=== PATIENT | female | born 1965 | race African-American/Black ===

== ENCOUNTER 2019-09-19 20:28 | Observation (INO) ==
[2019-09-19 21:25] LABS: URINE SOURCE CLEAN CATCH
[2019-09-19 21:28] LABS: BILIRUBIN URINE NEGATIVE (NEGATIVE); BLOOD URINE MODERATE (NEGATIVE); COLOR YELLOW; GLUCOSE URINE NEGATIVE (NEGATIVE); KETONE URINE TRACE mg/dL (NEGATIVE); LEUKOCYTES URINE NEGATIVE (NEGATIVE); NITRITE URINE NEGATIVE (NEGATIVE); PROTEIN URINE 50 mg/dL (NEGATIVE); SP GRAVITY URINE 1.033; TURBIDITY URINE CLEAR (CLEAR); UROBILINOGEN URINE NORMAL (NORMAL)
[2019-09-19] MEDS ORDERED: BENTYL PO ONE (21:31)
[2019-09-19] MEDS ORDERED: ZOFRAN IV ONE (21:31)
[2019-09-19 21:33] LABS: BASO# 0.01 X1000 (0.0-0.2); BASO% 0.2 % (0.0-0.8); EOS# 0.01 X1000 (0.0-0.7); EOS% 0.2 % (0.0-10.0); HEMATOCRIT 30.6 % (37.0-47.0); HEMOGLOBIN 8.5 g/dL (12.0-16.0); IMM GRAN# 0.01 X1000 (0.0-0.04); IMM GRAN% 0.2 % (0.0-0.5); LYMPH# 0.74 X1000 (1.2-3.4); LYMPH% 13.7 % (20.5-51.1); MCH 18.8 PG (27-31); MCHC 27.8 g/dL (33-37); MCV 67.5 FL (81-99); MONO% 7.4 % (1.7-9.3); MPV 10.4 FL (7.4-10.4); NEUT# 4.22 X1000 (1.4-6.5); NEUT% 78.3 % (42.2-75.2); PLT 295 X1000 (130-400); RBC 4.53 XMIL (4.2-5.4); RDW 21.1 % (11.5-14.5); WBC 5.39 X1000 (4.8-10.8)
[2019-09-19] MEDS ORDERED: NS 1,000 ML IV ONE (21:34)
--- NOTE | 2019-09-19 21:37 | PROVIDER DOCUMENTATION ---
HPI-Abdominal Pain/GI Problem - General Chief Complaint: Diarrhea Stated Complaint: N/V Time Seen by Provider: 09/19/19 21:27 Source: patient Allergies/Adverse Reactions: Patient Allergies Allergy/AdvReac Type Severity Reaction Status Date / Time No Known Allergies Allergy Verified 09/19/19 20:36 Home Medications: Home Medication List Medication Instructions Recorded Confirmed Last Taken Type NK [No Home Medications] 09/19/19 09/19/19 Unknown History - History of Present Illness-ABD Nature of Presenting Problems: Patient is a 54yo F who presents with complaints of bilateral lower abdominal pain, nausea, vomiting, and diarrhea x2 days. Reports last episode of emesis was 1900 this evening, and last episode of diarrhea occurred while in ED. Patient reports she has not been able to tolerate fluids. Denies OTC medication usage, fever/chills, blood in emesis/stool, CP, or SOB. Non-toxic in appearance. Abdominal Pain Onset Location: reports: RLQ, LLQ Pain Radiation: reports: no radiation Quality of Pain: reports: aching, cramping Severity in ED: reports: moderate Onset/Duration: reports: 2 days ago Timing: reports: still present Modifying Factors: improves with: nothing Associated Symptoms: reports: diarrhea, nausea, vomiting. denies: back/neck pain, cough, fever/chills, genitourinary problems, shortness of breath, weakness Last BM: this evening Dark Stools Present?: reports: none noticed Rectal Bleeding: reports: none Rectal Pain: reports: none Emesis Description: reports: clear, other (undigested food) Bruising or Bleeding Gums?: No Similar Symptoms Previously?: No Recently seen or treated by another doctor?: No Review of Systems - Adult - REVIEW OF SYSTEMS - ADULT Constitutional: reports: no symptoms reported. denies: chills, fever Eyes: reports: no symptoms reported Ears, Nose, Mouth & Throat: reports: no symptoms reported Cardiovascular: reports: no symptoms reported. denies: chest pain, palpitations Respiratory: reports: no symptoms reported. denies: cough, shortness of breath Gastrointestinal: reports: see HPI, abdominal pain, diarrhea, nausea, vomiting Genitourinary: reports: no symptoms reported. denies: dysuria Musculoskeletal: reports: no symptoms reported Integumentary: reports: no symptoms reported Neurological: reports: no symptoms reported Psychiatric: reports: no symptoms reported Endocrine: reports: no symptoms reported Past History - Adult - PAST MEDICAL HISTORY-ADULT Review of Records: reports: Nursing Assessment Review, Medications Reviewed, Social history reviewed & non-contributory. Major Childhood Illnesses: reports: denies history Cardiovascular: reports: denies history Respiratory: reports: denies history Gastrointestinal: reports: Crohn's Obstetrical/Gynecological: reports: denies history Genitourinary: reports: denies history Musculoskeletal: reports: denies history Neurological: reports: denies history Endocrine/Immune: reports: anemia Other Conditions: reports: denies history - PRIOR SURGERIES/PROCEDURES Surgical/Procedure History: reports: gastric bypass - PRIOR HOSPITALIZATIONS Prior Hospitalizations: reports: for other non-related - IMMUNIZATION STATUS Childhood Immunizations: See Nurse Assessment Flu Vaccine: See Nurse Assessment - FAMILY HISTORY Family History: reviewed, not pertinent - SOCIAL HISTORY Smoking: denies, non-smoker Physical Exam-General - PHYSICAL EXAM-ADULT Initial Vital Signs Reviewed: Yes - CONSTITUTIONAL General Appearance: alert, mild distress. negative: lethargic, slow to respond, obtunded - EYES Eyes: PERRL/EOMI, pink conjunctivae - HEAD, EARS, NOSE, MOUTH & THROAT HENMT: normocephalic/atraumatic. negative: moist mucous membranes (dry) - NECK Neck: non-tender, full range of motion, supple, normal inspection - RESPIRATORY Respiratory: chest non-tender, lungs clear, normal breath sounds, no pleuratic chest pain, no respiratory distress, no accessory muscle use. negative: crackles, rales, rhonchi, stridor, wheezing - CARDIOVASCULAR Cardiovascular: regular rate, rhythm - GASTROINTESTINAL (ABDOMEN) Abdominal Exam: soft, no organomegaly, abnormal bowel sounds (hyperactive all quadrants), tenderness (bilateral lower quadrants). negative: distended, rigid, rebound - MUSCULOSKELETAL Back Exam: normal inspection Extremity: normal range of motion, non-tender, normal gait, normal inspection - SKIN Integumentary: normal color, normal turgor, warm/dry. negative: cyanosis, jaundice, pallor - NEUROLOGIC Neurologic: grossly normal - PSYCHIATRIC Psych/Mental Status: normal mood/affect, normal thought content, normal thought process, oriented x 3 Progress - PLAN OF CARE/RESULTS Progress/Plan/Lab Results: Vital Signs - 8 hr 09/19/ 20:32 Temperature 98.4 F Pulse Rate 70 Respiratory Rate 18 Blood Pressure 131/79 O2 Sat by Pulse Oximetry 98 Laboratory Results - last 24 hr 09/19/19 21:17 Urine Source CLEAN CATCH Urine Color YELLOW Urine Turbidity CLEAR Urine pH 6.0 Ur Specific [place] 1.033 Urine Protein 50 A Ur Glucose (Stick) NEGATIVE Ur Ketones (Stick) TRACE A Urine Blood MODERATE A Urine Nitrite NEGATIVE Urine Bilirubin NEGATIVE Urobilinogen Dipstick NORMAL Urine Leukocytes NEGATIVE Orders Category Date Time Status Orthostatic Vital Signs NOW Care 09/19/19 21:01 Active CBC WITH ELECTRONIC DIFF [HEME] Stat Lab 09/19/19 21:14 Results COMPREHENSIVE METABOLIC PANEL [CHEM] Stat Lab 09/19/19 21:[address] Stat Lab 09/19/19 21:14 Received LIPASE [CHEM] Stat Lab 09/19/19 21:14 Received URINALYSIS W/POSS RFLX CULT [URINALYSIS] Stat Lab 09/19/19 21:17 Results URINE MANUAL MICROSCOPIC [URINALYSIS] Stat Lab 09/19/19 21:17 Results 2208: Patient's Potassium 3.0 likely d/t GI losses. EKG ordered. Discussed with Dr. Fraga regarding replacement - he recommends 40mEq PO now (once nausea improves) & 20mEq IV now. Lab results, imaging results, and need for admission discussed with patient who agrees with and verbalizes understanding. Result Diagrams: 09/19/19 21:14 09/19/19 21:14 - REASSESSMENT Reassessment #1 Time Reassessed: 23:50 Status: unchanged Reassessment Comment: Pt still reports nausea & pain. Will admit for observation d/t ileus - EKG 1 Time of EKG reading by physician:: 22:16 EKG Read and Signed by:: Esteban Fraga EKG Interpretation (*Must complete 3 of following elements*): Abnormal Rate: 66 Rhythm: NSR [place]: normal QRS: poor R wave progression (V2-V4 - per Dr. Fraga) ST Wave: non-specific ST changes Comments: Possible L atrial enlargement - CT/MRI 1 CT Study: Abdomen, Pelvis Impression: See EMR Report ("1. Mild small and large bowel ileus. No evidence for obstruction or ascites. 2. Small midline ventral hernia the upper abdomen with mild inflammatory changes.") - CONSULTS/PCP/HOSPITALIST Notification #1 *Consult/PCP/Hospitalist*: Dr. Juarez, Hospitalist Time Discussed: 00:42 Reason/Comments: Ileus; hypokalemia Consult Disposition: Admit (Observation) Departure - Departure Date of Disposition Decision: 09/20/19 Time of Disposition Decision: 00:43 DIAGNOSIS: Ileus, Hypokalemia Abdominal pain Qualifiers: Abdominal location: lower abdomen, unspecified Qualified Code(s): R10.30 - Lower abdominal pain, unspecified Nausea and vomiting Qualifiers: Vomiting type: unspecified Vomiting Intractability: unspecified Qualified Code(s): R11.2 - Nausea with vomiting, unspecified Diarrhea Qualifiers: Diarrhea type: unspecified type Qualified Code(s): R19.7 - Diarrhea, uns pecified UTI (urinary tract infection) Qualifiers: Urinary tract infection type: acute cystitis Hematuria presence: with hematuria Qualified Code(s): N30.01 - Acute cystitis with hematuria Disposition: ADMITTED INPATIENT 09 Certified Medical Emergency: Emergent Condition: Stable Referrals and Follow-Ups: Edwin Childress MD [Primary Care Provider] - Call for Appoint. 1-2days (Follow up for abdominal pain, nausea, vomiting, and diarrhea.) Discharge Education: Food Choices to Help Relieve Diarrhea, Adult - Critical Care Note This patient required my direct & personal management of CC.: No Attestation - Physician/ DORITA Attestation Patient care was provided by Advanced Practice Provider:: Yes Advanced Practice Provider:: Shraddha Lloyd Advanced Practice Provider documentation review:: The Mid-level provider documentation, treatment plan and medical decision making was reviewed by the physician who agrees with all treatment and medical decision making by the P. The physician spent face to face time with patient:: No Advanced Practice Provider documentation review:: Supervising physician onsite and consulted in the evaluation and care of this patient. The physician did not have a face to face encounter with the patient.
[2019-09-19 21:40] LABS: AGAP 14; ALBUMIN 4.1 g/dL (3.5-5.0); ALKALINE PHOSPHATASE 130 U/L (32-104); BUN 13 mg/dL (8-22); CALCIUM 8.2 mg/dL (8.8-10.2); CHLORIDE 108 mmol/L (98-107); COSMO 285; CREATININE 0.7 mg/dL (0.5-0.9); ESTIMATED GFR > 60; GLUCOSE 94 mg/dL (70-104); GOT 25 U/L (10-30); GPT 9 U/L (10-36); LIPASE 33 U/L (13-60); SODIUM 143 mmol/L (136-145); TCO2 21 mmol/L (25-35); TOTAL PROTEIN 7.7 g/dL (6.3-8.3)
[2019-09-19 21:44] LABS: INFLUENZA A NEGATIVE (NEGATIVE); INFLUENZA B NEGATIVE (NEGATIVE)
[2019-09-19 21:47] LABS: UR EPITHELIAL CELLS <10 /HPF (<10); URINE BACTERIA NEGATIVE /HPF; URINE RBC 20-40 /HPF (<10)
[2019-09-19] MEDS ORDERED: POTASSIUM CHLORIDE 20 MEQ/SWI 20 MEQ/100 ML IVPB IV ONE ×2 (22:07→23:53)
[2019-09-19] MEDS ORDERED: KLOR-CON PO ONE (22:07)
[2019-09-19] MEDS ORDERED: ROCEPHIN 1 GM in NS 50 ML IV ONE (22:18)
[2019-09-19] MEDS ORDERED: TORADOL IV ONE (23:52)
--- NOTE | 2019-09-20 00:32 | EKG Report ---
Test Performed on : 09/19/2019 10:16:06 PM Test Reason : Hypokalemia Blood Pressure : / mmHG Vent. Rate : 066 BPM Atrial Rate : 066 BPM P-R Int : 160 ms QRS Dur : 076 ms QT Int : 386 ms P-R-T Axes : 055 011 092 degrees QTc Int : 404 ms Normal sinus rhythm. Possible Left atrial enlargement Septal infarct , age undetermined T wave abnormality, consider lateral ischemia Abnormal ECG When compared with ECG of 01-AUG-2016 20:12, Significant changes have occurred Confirmed by Bhargavi RIVERA, Scottie ([id number]), managing editor Maria Fernanda Nolen ([id number]) on 10/30/2019 12:37:51 PM
[2019-09-20] MEDS ORDERED: NS 1,000 ML IV ONE (00:44)
[2019-09-20] MEDS ORDERED: ZOFRAN IV PRN (10:24)
[2019-09-20] MEDS: MORPHINE IV PRN ×2 (10:35→13:57)
--- NOTE | 2019-09-20 10:57 | HISTORY AND PHYSICAL ---
PRIMARY CARE PHYSICIAN: None. CHIEF COMPLAINT: Lower abdominal pain with nausea, vomiting, and diarrhea for the past 2 days that progressively worsened. HISTORY OF PRESENTING ILLNESS: This is a 54-year-old female who presents to [facility] ER with complaints of right lower and left lower quadrant abdominal pain, nausea, vomiting, and diarrhea for the past 2 days. Her last episode of emesis was around 7 p.m. last night, and her last episode of diarrhea occurred while she was in the emergency room, and has not been able to tolerate fluids. She denied any fever, chills, blood in emesis or stool. Her workup showed a potassium of 3.0. CT of the abdomen and pelvis, per ER documentation, showed a mild small and large bowel ileus. No evidence for obstruction or ascites. She will be admitted for further evaluation and treatment. PAST MEDICAL HISTORY: Osteoarthritis and anemia. PAST SURGICAL HISTORY: Left knee surgery and a gastric bypass. FAMILY HISTORY: Reviewed and noncontributory. SOCIAL HISTORY: She currently lives with family. Denies any tobacco, alcohol, or illicit drug use. ALLERGIES: She has no known drug allergies. HOME MEDICATIONS: She does not take any medications on a routine basis. IMAGING AND LABORATORY DATA: Laboratory data showed a white blood cell count of 5.39, hemoglobin 8.5, hematocrit 30.6, platelets 295,000. Sodium 143, potassium 3, chloride 108, CO2 of 21, BUN of 13, creatinine 0.7, glucose 94. Lipase of 33. Urinalysis was negative. Influenza A and B were both negative. CT of the abdomen and pelvis, per ER documentation, showed a mild small and large bowel ileus, but no evidence for obstruction or ascites, small midline ventral hernia in the upper abdomen with mild inflammatory changes. REVIEW OF SYSTEMS: She denied any fever, chills, blurred vision, dizziness, chest pain, coughing, shortness of breath. She had right lower and left lower quadrant abdominal pain, nausea, vomiting, and diarrhea, but denies any burning or hurting with urination. PHYSICAL EXAMINATION: VITAL SIGNS: On arrival, she had a temperature of 98.4 degrees, pulse 70, respirations 18, blood pressure 131/79, saturating 98% on room air. GENERAL: This is a 54-year-old female who is lying in the bed and answers questions appropriately. HEENT: Normocephalic, atraumatic. Normal ENT inspection. Oropharynx and nares are clear. Eyes: Pupils are equal, round, and reactive to light and accommodation. Extraocular movements are intact. NECK: Normal inspection. Normal range of motion. LUNGS: Clear to auscultation bilaterally with equal lung expansion and chest wall movement. HEART: Regular rate and rhythm. No murmurs, rubs, or gallops. ABDOMEN: Soft, guarded. Tenderness to palpation. Bowel sounds are hypoactive x4 quadrants. MUSCULOSKELETAL: She had 5/5 strength x4 extremities. NEUROLOGICAL: The cranial nerves II through XII appear grossly intact. ASSESSMENT: 1. Nausea, vomiting, and diarrhea. 2. Ileus. 3. Hypokalemia. PLAN: She was admitted to the medical unit, placed on telemetry, held n.p.o. Will give her morphine 2 mg IV every 3 hours p.r.n., normal saline at 125 mL an hour, Zofran 4 mg IV every 4 hours p.r.n. She received potassium supplementation in the emergency room, and we will recheck CBC and BMP in the a.m. Further orders after seen by attending. Dictated by LAVERNE Alves for Surya Juarez MD cc: LAVERNE Alves MD
[2019-09-20] MEDS: NS 1,000 ML IV SCH (11:07)
--- NOTE | 2019-09-20 12:11 | Diag Imaging Result Doc PS360 ---
CT ABD/PELVIS W/IV CONT ONLY - 09/19/2019 INDICATION: LLQ abdominal pain, n/v/d COMPARISON: 08/11/2016 FINDINGS: The lung bases are clear and the heart size is normal. There is a moderate fat-containing epigastric ventral hernia. This has increased very slightly since prior. This measures about 4 x 2.3 cm. Stable gastric bypass changes. There are cholecystectomy clips. Small right renal cyst. Otherwise all abdominal organs are normal. No bowel obstruction or inflammation. Urinary bladder and rectum are normal. Bones are intact and well mineralized. IMPRESSION: 1. Small fat-containing ventral hernia which may have increased in size since prior. 2. Otherwise no acute disease or complication. This exam was performed using automated exposure control, adjustment of mA or kV according to patient size, and/or use of iterative reconstruction technique Electronically signed by Ihsan Mesa 09/20/2019 12:09 PM
--- NOTE | 2019-09-20 14:17 | HISTORY AND PHYSICAL ---
ADDENDUM: SUBJECTIVE: Patient has no major complaints. OBJECTIVE: Blood pressure 124/54, heart rate of 87, respiratory rate 18, temperature 100 degrees.Cardiovascular: Regular rate and rhythm. Pulmonary: Bilateral breath sounds clear to auscultation. GI: Soft. She is kind of diffusely tender, almost some rebounds maybe . LABORATORY DATA: White count is normal 5, hemoglobin and hematocrit 8 and 30, MCV 67, platelets 295,000, potassium is 3. All those were done last night in any case. PROBLEM LIST: Initially was read as ileus but the over-read by Dr. Mesa is just negative. There is no ileus. She has a ventral hernia but that is stable. It was an IV contrast only. She concerns me a little bit just because she has just got so much pain and I do not have a clear etiology so we will get stool studies because she is still having diarrhea, continue supportive care. We will get a surgical opinion if she is not improved she may need endoscopy or something to that. cc: Surya Juarez MD
[2019-09-20 14:31] LABS: EOS# 0.01 X1000 (0.0-0.7); EOS% 0.2 % (0.0-10.0); HEMATOCRIT 26.8 % (37.0-47.0); HEMOGLOBIN 7.6 g/dL (12.0-16.0); IMM GRAN# 0.01 X1000 (0.0-0.04); IMM GRAN% 0.2 % (0.0-0.5); LYMPH# 0.99 X1000 (1.2-3.4); LYMPH% 21.7 % (20.5-51.1); MCH 19.2 PG (27-31); MCHC 28.4 g/dL (33-37); MCV 67.8 FL (81-99); MONO# 0.81 X1000 (0.11-0.59); MONO% 17.7 % (1.7-9.3); NEUT# 2.75 X1000 (1.4-6.5); NEUT% 60.2 % (42.2-75.2); PLT 243 X1000 (130-400); RBC 3.95 XMIL (4.2-5.4); RDW 20.5 % (11.5-14.5); WBC 4.57 X1000 (4.8-10.8)
[2019-09-20 14:38] LABS: AGAP 14; BUN 8 mg/dL (8-22); CALCIUM 7.6 mg/dL (8.8-10.2); CHLORIDE 110 mmol/L (98-107); COSMO 279; CREATININE 0.6 mg/dL (0.5-0.9); ESTIMATED GFR > 60; GLUCOSE 94 mg/dL (70-104); POTASSIUM 3.2 mmol/L (3.5-5.1); SODIUM 141 mmol/L (136-145); TCO2 18 mmol/L (25-35)
[2019-09-20] MEDS: PROTONIX IV SCH (15:39)
[2019-09-20] MEDS: SODIUM CHLORIDE 0.9% INJ SCH (15:39)
[2019-09-20 15:50] LABS: BANDS 20 % (0-1); LYMPHS 14 % (21-51); MONO 10 % (1-9); SEGS 56 % (42-75)
[2019-09-20 15:51] LABS: ANISOCYTOSIS 2+; HYPOCHROM 2+; MICROCYTOSIS 2+; POIKILOCYTOSIS 1+; POLYCHROM 1+
[2019-09-20 15:54] LABS: OVALOCYTES 1+; STOMATOCYTES RARE
[2019-09-20 15:55] LABS: SCHISTOCYTES OCCASIONAL
--- NOTE | 2019-09-20 16:01 | GENERAL SURGERY CONSULTATION ---
DATE: 09/20/2019 REQUESTING PHYSICIAN: Dr. Juarez. REASON FOR CONSULTATION: Abdominal pain. HISTORY OF PRESENT ILLNESS: A 54-year-old female with a history of gastric bypass, who presented with 2-day history of lower abdominal pain, nausea, vomiting and diarrhea that has progressively worsened. She was seen in the emergency department and had a CT scan that showed initially on the preliminary report a small bowel and large bowel ileus, but no obvious other acute pathology. She has had a ventral hernia looks slightly increased in size but does not look strangulated. She reports the pain as being bilateral lower quadrant, felt like something stabbing and dancing. She has never had pain like this before. It is increasing in intensity. She is now becoming tachycardic and febrile. PAST MEDICAL HISTORY: Osteoarthritis, anemia. PAST SURGICAL HISTORY: Includes left knee surgery, gastric bypass. FAMILY HISTORY: Reviewed with the patient and noncontributory. SOCIAL HISTORY: Denies alcohol, tobacco or illicit drugs. ALLERGIES: None. HOME MEDICATIONS: MAR reviewed. REVIEW OF SYSTEMS: A full 14 systems reviewed are negative except as specified in the HPI. PHYSICAL EXAMINATION: Vital Signs: Patient is currently febrile with temperature 100 degrees, heart rate in 100s, blood pressure is 120 systolic. O2 saturation 97%. General: Appears uncomfortable. -Cypriot female, looks stated age. HEENT: Normocephalic, atraumatic. Pupils equal, round, reactive to light. Mucous membranes moist. Oropharynx benign. Neck: Supple. Trachea midline. Cardiovascular: Some tachycardia. Lungs: Grossly clear. Abdomen: Diffusely tender with rebound somewhat consistent with pain out of proportion to exam. Extremities: Moves all extremities. Neurologic: Grossly intact. Skin: No signs of jaundice. Vascular: All extremities perfused. LABORATORY DATA: White blood cell count 4, hematocrit 26, platelet count 243,000. Remainder of labs reviewed. CT scan independently reviewed and radiology report reviewed. ASSESSMENT AND PLAN: A 54-year-old female with abdominal pain Abdominal pain. At this time, the pain seems out of proportion to exam. She has had a history of gastric bypass. I do not see an obvious hernia noted on this CT scan but it is very difficult to follow the bowel. She is more tender on exam than I would suspect, given a normal CT scan. Discussed her diagnostic laparoscopy and possible exploratory laparotomy. Discussed with her risks, benefits, and alternatives of the procedure risks including but not limited to bleeding, infection, risk of anesthesia, risk of injuring other organs, risk of need for bowel resection, risk of need to reverse her gastric bypass. We will get her across town and I have started on antibiotics and proceed with surgery. cc: Jorge A Covington MD
[2019-09-20] MEDS ORDERED: DIPRIVAN 1% ONE (16:27)
[2019-09-20] MEDS ORDERED: MEFOXIN 2 GM/D5W 2 GM/50 ML IVPB IV ONE (16:30)
[2019-09-20] MEDS ORDERED: SENSORCAINE-MPF 0.5%/EPI 1:200,000 ONE (16:47)
[2019-09-20] MEDS ORDERED: LR 1,000 ML ONE (16:47)
[2019-09-20] MEDS ORDERED: FENTANYL ONE (17:15)
[2019-09-20] MEDS ORDERED: OFIRMEV 1000 MG/ISOTONIC SOLN 0 MG/0 ML BOTTLE ONE (17:15)
[2019-09-20] MEDS ORDERED: DECADRON ONE (17:15)
[2019-09-20] MEDS ORDERED: QUELICIN (DOSE) ONE (17:15)
[2019-09-20] MEDS ORDERED: ZOFRAN ONE (17:15)
[2019-09-20] MEDS ORDERED: ZEMURON ONE (17:15)
[2019-09-20] MEDS ORDERED: NEOSTIGMINE ONE (17:51)
[2019-09-20] MEDS ORDERED: ROBINUL ONE (17:51)
[2019-09-20 17:59] LABS: URINE SOURCE CATH
[2019-09-20 18:04] LABS: BILIRUBIN URINE NEGATIVE (NEGATIVE); BLOOD URINE MODERATE (NEGATIVE); COLOR YELLOW; GLUCOSE URINE NEGATIVE (NEGATIVE); KETONE URINE 60 mg/dL (NEGATIVE); LEUKOCYTES URINE NEGATIVE (NEGATIVE); NITRITE URINE NEGATIVE (NEGATIVE); PROTEIN URINE TRACE mg/dL (NEGATIVE); SP GRAVITY URINE 1.022; TURBIDITY URINE CLEAR (CLEAR); UROBILINOGEN URINE NORMAL (NORMAL)
[2019-09-20 18:05] LABS: UR EPITHELIAL CELLS <10 /HPF (<10); URINE BACTERIA NEGATIVE /HPF; URINE WBC <10 /HPF (<10)
--- NOTE | 2019-09-20 18:06 | OPERATIVE NOTE ---
PROCEDURE DATE: 09/20/2019 PREOPERATIVE DIAGNOSIS: 1. Abdominal pain. 2. History of Goody Powder intake. 3. History of gastric bypass. POSTOPERATIVE DIAGNOSIS: 1. Abdominal pain. 2. History of Goody Powder intake. 3. History of gastric bypass. 4. Abdominal adhesions. PROCEDURE: Diagnostic laparoscopy with lysis of adhesions. SURGEON: Jorge A Covington MD. SUPERVISOR HIDE HOUSE: None. ANESTHESIA: General endotracheal. INTRAOPERATIVE FINDINGS: A single band of adhesions that looked like it was traveling up to a previous trocar site that was lysed. The small bowel appeared to be viable, maybe slightly inflamed. The colon appeared to be normal. I did not see any ischemic bowel. I did not see an internal hernia. I did not see any external signs of a perforated ulcer down at the anastomosis. I was able to see the small bowel to small bowel anastomosis and able to see the area where the gastric bypass anastomosis was. It was an antecolic gastric bypass. COMPLICATIONS: None at the time of this dictation. ESTIMATED BLOOD LOSS: 5 mL. SPECIMENS REMOVED: None. BRIEF HISTORY: A 54-year-old female presenting with abdominal pain. She had pain that seemed to be disproportionate to exam. It was felt that she would benefit from a diagnostic laparoscopy. The risks, benefits, and alternatives were discussed. All questions answered. DESCRIPTION OF PROCEDURE: After informed consent was obtained, the was patient brought to the operative theatre, transferred to the operating table and placed in supine position. General endotracheal anesthesia was then performed without complication. A formal time-out was then performed, confirming patient and procedure. All were in agreement. At that time, we elected to place a 5 mm trocar using Optiview technique infraumbilically. We then placed 2 more trocars, both lateral to this at least 10 cm, one in the left side, one in the right side. We were able to establish pneumoperitoneum without difficulty. We examined the abdomen. Upon entering, we did not see any succus or stool or purulence. I did not get any obvious free air. We examined the visible bowel just right at the abdominal insertion site. It appeared to be maybe slightly inflamed, but appeared to be overall viable. No signs of ischemia. There was a single band that was coming from the left side going across the abdomen to the right side, which we lysed sharply with electrocautery at the abdominal wall. This freed up some small bowel which appeared to be maybe slightly obstructed, but it did not seem to be causing any strangulation. I reviewed the entirety of the small bowel, went to the ileocecal valve and then ran the bowel. I did not see any ischemic bowel. I do not see any internal hernia. We were able to go back up to the anastomosis of the small bowel from the start of the Latasha limb. It appeared to be viable, may be slightly inflamed, but viable. I was able to elevate the antecolic Latasha limb up to the esophagus and the gastric pouch. I did not see any purulence, inflammation, or signs of a perforation there. The bowel itself appeared to be viable. I did not see any internal hernias or Tabares hernias in the Sorensen defect. I went and looked at the remnant of the stomach. It appeared to be viable. I did not see any obvious changes. We reexamined the rest of the bowel and the colon. I did not see any other issues. There was some mild fluid free fluid down in the pelvis, but it did not look contaminated. I did not see any other pathology. At this point, I felt as though, given her history of taking only water and Goody Powders for the last several days, that she could have developed an ulcer that has not perforated, so I elected to remove all trocars and disconnected the insufflation. Pneumoperitoneum was released. We closed all skin incisions. At this point, I think the patient would benefit from an EGD. We will put her on Protonix twice a day. I have already discussed the case with Dr. Reaves who is on-call for GI. cc: Jorge A Covington MD
[2019-09-20] MEDS ORDERED: NS 1,000 ML ONE (18:23)
[2019-09-20] MEDS: MORPHINE ONE ×3 (18:35→18:43)
[2019-09-20] MEDS ORDERED: EPHEDRINE ONE (18:48)
[2019-09-21] MEDS: NS 1,000 ML IV SCH (02:39)
[2019-09-21] MEDS: PROTONIX IV SCH ×2 (02:39→15:49)
[2019-09-21] MEDS: OFIRMEV 1000 MG/ISOTONIC SOLN 1,000 MG/100 ML BOTTLE IV PRN ×2 (02:52→10:51)
--- NOTE | 2019-09-21 06:04 | GENERAL SURGERY PROGRESS NOTE ---
DATE: 09/21/2019 SUBJECTIVE: The patient seems to be doing okay after her operation, has a little less discomfort than she had. OBJECTIVE: Vital Signs: The patient is currently afebrile, her vital signs are stable. General: No acute distress. Cardiovascular: Regular rate and rhythm. Lungs: Grossly clear. Abdomen: Soft, appropriately tender. Less tender overall than previous examination. ASSESSMENT AND PLAN: A 54-year-old female, currently postoperative day #1 from a diagnostic laparoscopy and lysis of adhesions. Postoperative state. At this time still agree with getting GI to see her for evaluation given the fact that she is taking a lot of Goody Powder and she has a gastric bypass. We will keep her on Protonix twice a day and see if GI can do EGD today to evaluate her. We will continue to follow. cc: Jorge A Covington MD
[2019-09-21 06:50] LABS: HEMOGLOBIN 7.8 g/dL (12.0-16.0); LYMPH# 1.03 X1000 (1.2-3.4); LYMPH% 26.5 % (20.5-51.1); MCH 19.9 PG (27-31); MCHC 28.9 g/dL (33-37); MCV 69.1 FL (81-99); MONO# 0.54 X1000 (0.11-0.59); MONO% 13.9 % (1.7-9.3); NEUT# 2.31 X1000 (1.4-6.5); NEUT% 59.6 % (42.2-75.2); PLT 234 X1000 (130-400); RBC 3.91 XMIL (4.2-5.4); RDW 21.4 % (11.5-14.5); WBC 3.88 X1000 (4.8-10.8)
[2019-09-21 07:16] LABS: AGAP 14; BUN 8 mg/dL (8-22); CALCIUM 7.7 mg/dL (8.8-10.2); CHLORIDE 107 mmol/L (98-107); COSMO 279; CREATININE 0.7 mg/dL (0.5-0.9); ESTIMATED GFR > 60; GLUCOSE 86 mg/dL (70-104); POTASSIUM 3.3 mmol/L (3.5-5.1); SODIUM 141 mmol/L (136-145); TCO2 20 mmol/L (25-35)
[2019-09-21] MEDS ORDERED: VERSED ONE (09:54)
[2019-09-21] MEDS ORDERED: DIPRIVAN 1% ONE (09:55)
--- NOTE | 2019-09-21 10:20 | ENDOSCOPY OPERATIVE NOTE ---
[facility] ENDOSCOPY OPERATIVE NOTE , EGD PROCEDURE REPORT EXAM DATE: 09/21/2019 PATIENT NAME: Catrina Flores MR#: [id number] BIRTHDATE: 1965 ATTENDING: Nehemiah Reaves MD STATUS: inpatient TEACHER DANCING: Denise Winter and Elsi Arguelles INDICATIONS: The patient is a 54 yr old female here for an EGD due to Abodminal Pain periumbilical r egion s/p Laparoscopy 09-20-[address] Covington and it showed inflammation at Gastric Bypass anastomosis; Anemia, H /o Goody powders use every day for months. Gastric Bypass [place] [address] [place].. PROCEDURE PERFORMED: EGD, diagnostic MEDICATIONS: Per Anesthesia ESTIMATED BLOOD LOSS: None CONSENT: The patient understands the risks and benefits of the procedure and understands that these r isks include, but are not limited to: sedation, allergic reaction, infection, perforation and/or bleeding. Alternative means of evaluation and treatment include, among others: physical exam, x-rays, and/or surgical intervention. The patient elects to proceed with this endoscopic procedure. DESCRIPTION OF PROCEDURE: During pre-op preparation period all mechanical and medical equipment was c hecked for proper function. Hand hygiene and appropriate measures for infection prevention was taken. After the risks, benefits and alternatives of the procedure were thoroughly explained, Informed consent was verified, confirmed and timeout was successfully executed by the treatment team. The patient was anesthetized with topical anesthesia and the [id number] ([id number]) endoscope was introduced through the mouth and advanced to the proximal jejunum. Retroflex ion of the stomach was not performed. The gastroscope was then slowly withdrawn and removed. The patient's toleration of the procedure was good. ESOPHAGUS: The mucosa of the esophagus appeared normal. 40 cms. STOMACH: A single non-bleeding and linear ulcer ranging between 3-5 mm in size was found at the gastr o-jejunal anastomosis. A gastric bypass was found with evidence of gastric pouch and the gastro-jejunal anast omosis. JEJUNUM / ILEUM: The mucosa appeared normal in the jejunum and ileum. Normal efferent loop of small intestine upto 65 cms from the incisors. ADVERSE EVENTS: There were no complications. IMPRESSIONS: 1. The mucosa of the esophagus appeared normal 2. 40 cms 3. Single ulcer ranging between 3-5 mm in size was found at the gastro-jejunal anastomosis 4. Gastric bypass was found in the gastric pouch and at the gastro-jejunal anastomosis 5. The mucosa appeared normal in the jejunum and ileum RECOMMENDATIONS: Start PPI BID for 90 days Start Carafate 1g every 6 hours for 6 weeks Start Iron C BID and MVI QD May need colonoscopy as an outpatient for Anemia workup. Quit Goody powders Start Liquid diet and advance as tolerated. REPEAT EXAM: Nehemiah Reaves MD eSigned: Nehemiah Reaves MD 09/21/2019 10:19 AM CC: CPT CODES: 25833 Upper gastrointestinal endoscopy including esophagus, stomach, and either the du odenum and/or jejunum as appropriate; diagnostic, with or without collection of specimen(s) by brushing or washing (separate procedure) ICD CODES: The ICD and CPT codes recommended by this software are interpretations from the data that the [facility] staff has captured with the software. The verification of the translation of this report to the ICD and CPT co geno and modifiers is the sole responsibility of the health care institution and practicing physician where this report was generated. [employer] will not be held responsible for the validity of the ICD and CPT codes i ncluded on this report. [facility] assumes no liability for data contained or not contained herein. CPT is a registered tra demark of the [employer]. PATIENT NAME: Catrina Flores MR#: [id number]
[2019-09-21] MEDS: PERIDEX MT SCH ×2 (10:53→21:18)
[2019-09-21] MEDS: MORPHINE IV PRN ×2 (15:34→20:24)
[2019-09-21] MEDS: CARAFATE LIQUID PO SCH ×2 (15:48→21:22)
[2019-09-21] MEDS: SODIUM CHLORIDE 0.9% INJ SCH (15:49)
[2019-09-21] MEDS: KLOR-CON PO SCH ×2 (18:27→21:15)
[2019-09-21] MEDS: ROCEPHIN 1 GM in NS 50 ML IV SCH (18:58)
--- NOTE | 2019-09-21 18:58 | PROGRESS NOTE ---
DATE: 09/21/2019 INTERVAL HISTORY: Ms. Flores had undergone diagnostic laparoscopy and EGD in the last 24 hours, which she tolerated well. She has been started on clear liquid diet, which she is able to keep down, though she continues to have diarrhea and abdominal pain. Her is at bedside. Ms. Flores states she did have increased frequency of urination before presentation. She did not have dysuria though. She is currently complaining of productive cough with yellowish expectoration, which is new. She denies any chest pain or shortness of breath. Denies any nausea or vomiting. We discussed about urinary tract infection. We discussed about stomach ulcer. We discussed about harmful effects of Goody Powder. Answered all of their questions. VITAL SIGNS: Temperature 99 degrees, pulse 64, respiratory rate 20, blood pressure 130/60, saturating 100% room air. PHYSICAL EXAMINATION: General: Not in acute distress. Oral cavity: Moist. Lungs: Air entry bilaterally equal. No wheeze, rhonchi, crackles. Cardiovascular: S1, S2 normal. No murmur or gallop. Abdomen: Soft. Generalized tenderness. Hypoactive bowel sounds. She has wounds of the recent laparoscopy. Extremity: No lower extremity edema. Neurologic: She is alert and oriented x3. : She has a urine catheter. LABS: Suggestive of leukopenia and microcytic anemia. She also has hypokalemia and normal kidney function. Urine culture is growing gram-negative rods. Blood cultures are in lab. ASSESSMENT AND PLAN: 1. Nausea and vomiting on presentation, now resolved. 2. Diarrhea and intractable abdominal pain. Diagnostic laparoscopy on 09/20/2019 was essentially unrevealing, and she underwent additional lysis at that time. She is status post endoscopy on 09/21/2019, which had a single ulcer at gastrojejunal anastomosis. Continue proton pump inhibitors, sucralfate, avoid nonsteroidal anti-inflammatory medications, and continue the liquid diet and advance as tolerated. I will keep her on intravenous morphine as needed for abdominal pain. 3. Diarrhea. She denies recent antibiotic use. She also has microcytic anemia. She may eventually need a colonoscopy in future. For now, I will await stool Clostridium difficile studies as well as stool culture. Continue her on iron carbonyl ascorbic acid and multivitamin. 4. Urine tract infection and cough with expectoration. She did have increased frequency of urination and I will start her on intravenous ceftriaxone. Follow up final urine culture results. I will also get chest x-ray tomorrow morning, though my suspicion for pneumonia is less, based on her clinical course and physical exam findings. 5. Disposition. Will monitor her as we observe her for return of normal bowel function and tolerating oral diet. I will appreciate Surgery's recommendation about discontinuing Cates catheter tomorrow. Plan of care discussed with the patient and her family at bedside. Their questions have been satisfactorily answered. cc: Ash Sullivan MD
[2019-09-21] MEDS: ICAR-C PO SCH (21:16)
[2019-09-21] MEDS: MIRALAX PO SCH (21:16)
[2019-09-22] MEDS: PROTONIX IV SCH (03:43)
[2019-09-22] MEDS: CARAFATE LIQUID PO SCH ×4 (03:43→20:36)
[2019-09-22] MEDS: OFIRMEV 1000 MG/ISOTONIC SOLN 1,000 MG/100 ML BOTTLE IV PRN (03:48)
--- NOTE | 2019-09-22 06:21 | GENERAL SURGERY PROGRESS NOTE ---
DATE: 09/22/2019 SUBJECTIVE: Patient seems to be doing okay. She is still having diarrhea. One of her microbiology showed positive for white blood cells in the stool. The remaining stool studies are still pending. OBJECTIVE: Vital Signs: Patient is currently afebrile. Her vital signs are stable. General: No acute distress. Cardiovascular: Regular rate and rhythm. Lungs: Grossly clear. Abdomen: Soft less tender. Incision is healing well. ASSESSMENT AND PLAN: A 54-year-old female with abdominal pain and diarrhea. 1. Abdominal pain at this time seems to be improving. We will put her on a regular diet. 2. Diarrhea. At this time, white blood cells are positive in the stool. Await further cultures. We will get GI recommendation and the hospitalist's recommendation. May need to change her antibiotics depending on what is shown. cc: Jorge A Covington MD
[2019-09-22] MEDS: ICAR-C PO SCH ×2 (08:32→20:36)
[2019-09-22] MEDS: PERIDEX MT SCH ×2 (08:32→20:36)
[2019-09-22] MEDS: CENTRUM SILVER PO SCH (08:32)
[2019-09-22] MEDS: MIRALAX PO SCH ×2 (08:33→20:36)
--- NOTE | 2019-09-22 10:38 | Diag Imaging Result Doc PS360 ---
EXAM: CHEST-2 VIEWS HISTORY: Productive cough. Rule out pneumonia TECHNIQUE: Two views COMPARISON: 03/10/2019 FINDINGS: The lungs are well expanded. The heart is not enlarged. The vessels are not distended. There are no infiltrates. No pleural effusions. There is a left-sided granuloma. IMPRESSION: No pneumonia Electronically signed by Ford Chiu 09/22/2019 10:35 AM
[2019-09-22] MEDS ORDERED: IMODIUM PO PRN (10:53)
[2019-09-22] MEDS ORDERED: IMODIUM PO ONE (10:53)
[2019-09-22] MEDS ORDERED: CLINIMIX E 4.25%-5% SOLUTION 1,000 ML IV SCH (14:15)
[2019-09-22] MEDS ORDERED: POTASSIUM CHLORIDE 60 MEQ in NS 500 ML IV ONE (14:30)
--- NOTE | 2019-09-22 14:59 | PROVIDER PROGRESS NOTE ---
Progress Note S: No acute overnight events. No N/V/F, CP, SOB, abdominal pain. She continues to have watery diarrhea up to 6 times daily that is worse after eating. O: Last Vital Signs Temp 97.8 F 09/22/19 11:27 Pulse 71 09/22/19 11:27 Resp 20 09/22/19 11:27 BP 116/50 09/22/19 11:27 Pulse Ox 100 09/22/19 11:27 Height 5 ft 7 in Weight 192 lb 5 oz GEN: awake, alert, NAD HEENT: anicteric, MMM NECK: supple, no JVD PULM: CTAB ABD: soft NT/ND, NABS EXT: no cce NEURO: nonfocal LABS: None today EGD 09/21 ESOPHAGUS: The mucosa of the esophagus appeared normal. 40 cms. STOMACH: A single non-bleeding and linear ulcer ranging between 3-5 mm in size was found at the gastro-jejunal anastomosis. A gastric bypass was found with evidence of gastric pouch and the gastro-jejunal anastomosis. JEJUNUM / ILEUM: The mucosa appeared normal in the jejunum and ileum. Normal efferent loop of small intestine upto 65 cms from the incisors. IMPRESSIONS: 1. The mucosa of the esophagus appeared normal 2. 40 cms 3. Single ulcer ranging between 3-5 mm in size was found at the gastro-jejunal anastomosis 4. Gastric bypass was found in the gastric pouch and at the gastro-jejunal anastomosis 5. The mucosa appeared normal in the jejunum and ileum A/P: Ms. Catrina Flores is a 54 year old woman with who RYGB who presented with acu te N/V/D and abdominal pain who underwent diagnostic laparascopy found to have NSAID-induced marginal ulcer on EGD on 09/21. She is also being treated for E coli UTI. She denies ongoing N/V or abdominal pain, but continues to have watery diarrhea. CT was negative for colitis and stool studies only show increased WBC and FOBT, which is likely from her known ulcer. Her LGI symptoms are likely acute viral gastroenteritis. Will start her on imodium. She has never had colonoscopy. If her symptoms do not improve with supportive care in 2-4 weeks, then recommend outpatient diagnostic colonoscopy to rule out IBD. # Marginal ulcer: 2/2 to NSAIDs; transitioned PPI to PO BID, continue for 3 months; repeat EGD in 8-12 weeks to check for ulcer healing; avoid NSAIDs # Acute diarrhea: stool culture, cdiff, O&P negative; +WBC/RBCs; will start imodium prn; advance to GI soft diet as tolerated # E coli UTI: on abx per primary # N/V: resolved; antiemetics prn # Microcytic anemia: likely from iron deficiency; checking iron studies, folate, b12; recommend outpatient colonoscopy at time of repeat EGD # Hypokalemia: order BMP Will follow with you. Please call with questions
--- NOTE | 2019-09-22 15:37 | PROGRESS NOTE ---
DATE: 09/22/2019 SUBJECTIVE: Patient reports still having diarrhea. She reports that she had a bypass surgery in 2003 and according to her, she never had chronic diarrhea until a few days ago. She is still having diarrhea according to her once every hour or every 2 hours. She is on regular diet but she is not having good appetite. OBJECTIVE: Vital Signs: Temperature 98.8 degrees, heart rate 71 respiratory rate 20, blood pressure 116/50, O2 saturation 100% on room air. General Examination: This is a 54-year-old, -[place] female lying in bed, in no acute distress. Cardiovascular: S1, S2 heard. No murmurs, gallops or rubs. Regular rate and rhythm. Respiratory: Clear bilaterally to auscultation. No work of breathing or using accessory muscles. Abdomen: Soft, nontender to palpation. Bowel sounds present. No organomegaly. Extremities: No clubbing, cyanosis or edema. Peripheral pulses present in both legs. Neurological: Patient alert and oriented x3. Moves all 4 extremities. LABORATORY DATA: White cell count 3.85, hemoglobin 7.8, hematocrit 27.0, platelets 234,000, with potassium 3.3. ASSESSMENT AND PLAN: 1. Acute diarrhea. Patient has had done diagnostic laparoscopy 2 days ago for intractable abdominal pain which is now improved. Also, she has undergone upper endoscopy, which basically showed a single ulcer at the gastrojejunal anastomosis that is 3 to 5 mm. At this point, patient has been placed on Protonix and sucralfate, and actually she has been changed to regular diet. The patient reports the abdominal pain is better but continues to have diarrhea. So far workup including stool culture, ova and parasite, stool occult blood, C. Difficile antigen and toxin are negative. So far, as we mentioned before, the abdominal pain is fine so at this point, we will continue with the same management. 2. Diarrhea. At this point, patient continues to have diarrhea. C. Difficile is okay so I think at this point, we may need to provide some Culturelle and Dr. Thomas has ordered some Imodium for this patient. 3. Urinary tract infection. Patient has been placed on IV ceftriaxone. So far urine culture shows E. Coli pansensitive, so we will continue with same management. 4. Disposition. At this point, we will continue to monitor this patient closely to see return of normal bowel function. If she persists with diarrhea we will see what GI has to say. cc: Mazin Patton MD [facility]
[2019-09-22 16:16] LABS: HEMATOCRIT 26.5 % (37.0-47.0); HEMOGLOBIN 7.5 g/dL (12.0-16.0); MCH 19.6 PG (27-31); MCHC 28.3 g/dL (33-37); MCV 69.2 FL (81-99); PLT 253 X1000 (130-400); RBC 3.83 XMIL (4.2-5.4); RDW 21.7 % (11.5-14.5); WBC 4.03 X1000 (4.8-10.8)
[2019-09-22 16:38] LABS: AGAP 12; BUN 8 mg/dL (8-22); CALCIUM 8.2 mg/dL (8.8-10.2); CHLORIDE 108 mmol/L (98-107); COSMO 282; CREATININE 0.7 mg/dL (0.5-0.9); ESTIMATED GFR > 60; GLUCOSE 109 mg/dL (70-104); POTASSIUM 3.4 mmol/L (3.5-5.1); SODIUM 142 mmol/L (136-145); TCO2 22 mmol/L (25-35)
[2019-09-22 16:39] LABS: IRON SATURATION 9 %; TIBC 233 ug/dL; TOTAL IRON 21 ug/dL (49-151); UNBOUND IRON 212 ug/dL (112-346)
[2019-09-22 17:04] LABS: FERRITIN 15 ng/mL (13-150)
[2019-09-22] MEDS: ROCEPHIN 1 GM in NS 50 ML IV SCH (18:51)
[2019-09-22] MEDS: CULTURELLE PO SCH (20:35)
[2019-09-22] MEDS: PROTONIX PO SCH (20:36)
[2019-09-23] MEDS: CARAFATE LIQUID PO SCH ×3 (01:13→13:47)
--- NOTE | 2019-09-23 07:13 | GENERAL SURGERY PROGRESS NOTE ---
DATE: 09/23/2019 SUBJECTIVE: Patient seems to be doing okay. Her diarrhea is improved with the Imodium. Discussed the case with Dr. Reaves. She may need a workup for inflammatory bowel disease as an outpatient but at this point, she seems to be doing okay. OBJECTIVE: Vital Signs: Patient is currently afebrile. Her vital signs are stable. General: No acute distress. Cardiovascular: Regular rate and rhythm. Lungs: Grossly clear. Abdomen: Soft, appropriately tender. ASSESSMENT AND PLAN: A 54-year-old female status post diagnostic laparoscopy for abdominal pain. 1. Abdominal pain. At this time, it seems to be improving. She is on a regular diet, she seems to be tolerating it well. 2. Diarrhea. At this time, seems to be improving. Also, she is on Imodium. Discussed with GI. They were going to potentially do an outpatient colonoscopy. From a surgical point of view, I think she can be discharged home today if okay with the other specialties. cc: Jorge A Covington MD
[2019-09-23 07:35] LABS: BASO# 0.02 X1000 (0.0-0.2); BASO% 0.6 % (0.0-0.8); EOS# 0.06 X1000 (0.0-0.7); EOS% 1.7 % (0.0-10.0); HEMATOCRIT 27.4 % (37.0-47.0); HEMOGLOBIN 7.8 g/dL (12.0-16.0); LYMPH# 1.76 X1000 (1.2-3.4); LYMPH% 49.7 % (20.5-51.1); MCH 19.7 PG (27-31); MCHC 28.5 g/dL (33-37); MCV 69.2 FL (81-99); MONO# 0.37 X1000 (0.11-0.59); MONO% 10.5 % (1.7-9.3); NEUT# 1.33 X1000 (1.4-6.5); NEUT% 37.5 % (42.2-75.2); PLT 276 X1000 (130-400); RBC 3.96 XMIL (4.2-5.4); RDW 21.5 % (11.5-14.5); WBC 3.54 X1000 (4.8-10.8)
[2019-09-23 07:47] LABS: AGAP 11; ALBUMIN 3.1 g/dL (3.5-5.0); ALKALINE PHOSPHATASE 96 U/L (32-104); BUN 5 mg/dL (8-22); CHLORIDE 110 mmol/L (98-107); COSMO 283; CREATININE 0.7 mg/dL (0.5-0.9); ESTIMATED GFR > 60; GLUCOSE 104 mg/dL (70-104); GOT 18 U/L (10-30); GPT 8 U/L (10-36); POTASSIUM 3.3 mmol/L (3.5-5.1); SODIUM 143 mmol/L (136-145); TCO2 22 mmol/L (25-35); TOTAL BILIRUBIN 0.23 mg/dL (0.20-1.00); TOTAL PROTEIN 6.1 g/dL (6.3-8.3)
[2019-09-23 07:56] VITALS: BP 122/74
[2019-09-23 08:50] LABS: ANISOCYTOSIS 3+; EOS 3 % (1-10); LYMPHS 51 % (21-51); MICROCYTOSIS 3+; MONO 10 % (1-9); NRBC 1 % (0-0); SEGS 36 % (42-75)
[2019-09-23 08:51] LABS: HYPOCHROM 2+; LARGE PLATELETS 1+
[2019-09-23] MEDS ORDERED: KLOR-CON PO ONE (10:20)
[2019-09-23] MEDS: ICAR-C PO SCH (10:58)
[2019-09-23] MEDS: PROTONIX PO SCH (10:58)
[2019-09-23] MEDS: CULTURELLE PO SCH (10:58)
[2019-09-23] MEDS: CENTRUM SILVER PO SCH (10:58)
[2019-09-23] MEDS: PERIDEX MT SCH (10:58)
[2019-09-23] MEDS: MIRALAX PO SCH (11:15)
--- NOTE | 2019-09-23 15:40 | DISCHARGE SUMMARY ---
ADMISSION DATE: 09/20/2019 DISCHARGE DATE: 09/23/2019 DISCHARGE DIAGNOSIS: 1. Ileus. 2. Hypokalemia. 3. Acute diarrhea. 4. Persistent nausea and vomiting. PROCEDURES: 1. Abdomen and pelvis CT showed small fat-containing ventral hernia which may have increased in size since prior. No acute disease. 2. Chest x-ray showed no pneumonia. 3. Upper endoscopy showed a single ulcer ranging between 3 to 5 mm in size, found at the gastrojejunal anastomosis. Gastric bypass was found in the gastric pouch and the gastric anastomosis. Mucosa appeared normal in the jejunum and ileum. CONSULTATIONS: 1. Dr. Jorge A Covington from General Surgery. 2. Dr. Nehemiah Reaves from GI. HOSPITAL COURSE: This is a 54-year-old female who presented to the emergency department complaining of right lower and left lower quadrant abdominal pain, nausea or vomiting. The initial report from the CT of the abdomen showed ileus and that was the reason why this patient was admitted to the hospital. Then the CT was reread and there were no issues noted. In any case, we consulted Dr. Reaves from GI who decided to do an upper endoscopy with results as above. From GI standpoint, patient was feeling better progressively and they decided to do a colonoscopy as an outpatient. Actually, this patient was improving in terms of diarrhea, not feeling nauseated so eating a regular diet. So then decision was made to send this patient home and the patient is going to be seen by GI in 3 weeks. DISCHARGE PHYSICAL EXAMINATION: Temperature 98.5 degrees, heart rate 64, respiratory rate 18, blood pressure 122/74, O2 saturation 98% on room air. General Examination: This is a 54-year- old -[place] female lying in bed, in no acute distress. Cardiovascular: S1, S2 heard. No murmurs, gallops, or rubs. Regular rate and rhythm. Respiratory: Clear bilaterally to auscultation. No work of breathing or using accessory muscles. Abdomen: Soft, nontender to palpation. Bowel sounds present. No organomegaly. Extremities: No clubbing, cyanosis, or edema. Peripheral pulses present in both legs. Neurological: The patient is alert, oriented x3. Moves 4 extremities. DISCHARGE DISPOSITION: Home to self-care. LIST OF MEDICATIONS: 1. Sucralfate 1 g p.o. q. 6 hours. 2. Cefdinir 300 mg 1 tablet p.o. b.i.d. 3. Multivitamin 1 tablet p.o. daily. 4. Icar C 1 tab p.o. twice daily. 5. Protonix 40 mg 1 tablet p.o. b.i.d. 6. Loperamide 2 mg 4 times a day as needed for diarrhea. FOLLOW UP: With Gastroenterology in 2 weeks for outpatient colonoscopy. cc: Mazin Patton MD
--- NOTE | 2019-09-23 23:14 | PROVIDER PROGRESS NOTE ---
Progress Note S: No acute overnight events. Patient reports significant improvement in diarrhea since starting imodium. Yesterday she had "16 watery BMs"; none overnight or this morning. O: Last Vital Signs Temp 98.5 F 09/23/19 07:54 Pulse 64 09/23/19 07:54 Resp 18 09/23/19 07:54 BP 122/74 09/23/19 07:54 Pulse Ox 97 09/23/19 08:31 Height 5 ft 7 in Weight 192 lb 5 oz GEN: awake, alert, NAD HEENT: anicteric, MMM NECK: supple, no JVD PULM: CTAB ABD: soft NT/ND, NABS EXT: no cce NEURO: nonfocal LABS: 09/22/19 09/22/19 09/22/19 15:39 15:39 15:39 WBC Hgb MCV Plt Count Sodium Potassium Chloride Carbon Dioxide BUN Creatinine Iron 21 L TIBC 233 % Saturation 9 Unsat Iron Binding 212 Ferritin 15 Total Bilirubin AST ALT Alkaline Phosphatase Total Protein Albumin Vitamin B12 200 L Folate 14.8 09/23/19 09/23/19 06:10 06:10 WBC 3.54 L Hgb 7.8 L MCV 69.2 L Plt Count 276 Sodium 143 Potassium 3.3 L Chloride 110 H Carbon Dioxide 22 L BUN 5 L Creatinine 0.7 Iron TIBC % Saturation Unsat Iron Binding Ferritin Total Bilirubin 0.23 AST 18 ALT 8 L Alkaline Phosphatase 96 Total Protein 6.1 L Albumin 3.1 L Vitamin B12 Folate A/P: Ms. Catrina Flores is a 54 year old woman with who RYGB who presented with acute N/V/D and abdominal pain who underwent diagnostic laparascopy found to have NSAID-induced marginal ulcer on EGD on 09/21. She is also being treated for E coli UTI. N/V resolved. Her diarrhea is improving with imodium. Anemia workup is notable for ROSA and vitamin B12 deficiency. No overt bleeding. She is on iron. She will need vitamin B12 replacement as well. Continue PPI BID PO until repeat procedure and avoid NSAIDs. Imodium prn for diarrhea. Follow-up EGD and colonoscopy in 8-[address] Reaves. # Marginal ulcer # Acute diarrhea # ROSA # Vitamin B12 deficiency # E coli UTI # Hypokalemia Patient discharged.
== END 2019-09-23 14:06 | disposition home or self-care (01) ==
LOC: P.ED 20:28 → P.MEDSURG 20:28 → SUATTDRO 20:29 → 4N 09-20 16:10
PROVIDERS: ATTEND Internal Medicine